=== PATIENT | male | born 1975 | race Hispanic/Latino ===

== ENCOUNTER 2018-07-30 07:49 | Emergency (ER) | payer OTHER ==
[2018-07-30 08:59] LABS: ALT/SGPT 55 U/L (12-78); AST/SGOT 18 U/L (15-37); Albumin 3.9 g/dL (3.4-5.0); Alkaline Phosphatase 77 U/L (45-117); BUN Blood Urea Nitrogen 18 mg/dL (7-18); Bicarbonate 27 mmol/L (21-32); Bilirubin Direct 0.2 mg/dL (0-0.2); Bilirubin Total 0.8 mg/dL (0.2-1.0); Glucose Level 87 mg/dL (74-106); NT PRO-BNP 22 pg/mL (<125); Potassium 4.1 mmol/L (3.5-5.1); Protein, Total 7.7 g/dL (6.4-8.2); Sodium Level 143 mmol/L (136-145); Troponin (Emerg Dept Use Only) < 0.02 ng/mL (0.0-0.045)
--- NOTE | 2018-07-30 09:00 | RAD REPORT ---
EXAM DESCRIPTION: RAD - Chest Single View - 07/30/2018 8:22 am CLINICAL HISTORY: CHEST PAIN Chest pain. COMPARISON: Chest Pa And Lat (2 Views) dated 12/17/2016 FINDINGS: Portable technique limits examination quality. The lungs are grossly clear. The heart is normal in size. No displaced fractures. IMPRESSION: No acute intrathoracic process suspected.
--- NOTE | 2018-07-30 09:25 | EDPHYS ---
Physician Documentation [facility] Name: Adriano Campbell Age: 42 yrs Sex: Male : 1975 Arrival Date: 07/30/2018 Time: 07:51 Bed 7 Private MD: ED Physician Jason Swift HPI: 07/30 08:23 This 42 yrs old Male presents to ER via Ambulatory with complaints of Chest rn Pain. 08:23 The patient or guardian reports chest pain that is located primarily in the left rn lateral anterior chest. Onset: 1 week(s) ago. The pain does not radiate. Associated signs and symptoms: Pertinent positives: None. Pertinent negatives: abdominal pain, cough, diaphoresis, dizziness, lightheadedness, nausea, near syncope, palpitations, shortness of breath, syncope, vomiting. The chest pain is described as aching, a pressure. Duration: The patient or guardian reports multiple episodes, that are intermittent, the episodes last approximately 1 minute(s). Modifying factors: The symptoms are alleviated by nothing. the symptoms are aggravated by nothing. Severity of pain: At its worst the pain was mild in the emergency department the pain has improved. The patient has not experienced similar symptoms in the past. REports left sided chest pain/pressure, non-radiating, not assoc with exertion, + mild cough, no fever, no trouble sleeping, had mild dyspnea when climbing stairs today so came in for eval, episodes only last about a minute each time. No famhx of early cardiac disease. . Historical: - Allergies: 08:02 No Known Allergies; iw - Home Meds: 08:02 None [Active]; iw - PMHx: 08:02 GERD; iw - PSHx: 08:02 rhinoplasty; iw - Immunization history:: Adult Immunizations not up to date. - Social history:: Smoking status: Patient/guardian denies using tobacco. - Ebola Screening: : Patient negative for fever greater than or equal to 101.5 degrees Fahrenheit, and additional compatible Ebola Virus Disease symptoms Patient denies exposure to infectious person Patient denies travel to an Ebola-affected area in the 21 days before illness onset No symptoms or risks identified at this time. - Family history:: not pertinent. - Hospitalizations: : No recent hospitalization is reported. ROS: 08:23 Constitutional: Negative for fever, chills, and weight loss, Eyes: Negative for injury, rn pain, redness, and discharge, Neck: Negative for injury, pain, and swelling, Cardiovascular: Negative for palpitations, and edema, Respiratory: Negative for shortness of breath, cough, wheezing, and pleuritic chest pain, Abdomen/GI: Negative for abdominal pain, nausea, vomiting, diarrhea, and constipation, MS/Extremity: Negative for injury and deformity, Skin: Negative for injury, rash, and discoloration, Neuro: Negative for headache, weakness, numbness, tingling, and seizure. Exam: 08:23 Constitutional: This is a well developed, well nourished patient who is awake, alert, rn and in no acute distress. Head/Face: Normocephalic, atraumatic. Eyes: Pupils equal round and reactive to light, extra-ocular motions intact. Lids and lashes normal. Conjunctiva and sclera are non-icteric and not injected. Cornea within normal limits. Periorbital areas with no swelling, redness, or edema. Neck: Trachea midline, no masses palpated, and no cervical lymphadenopathy. No Meningismus. Cardiovascular: Regular rate and rhythm with a normal S1 and S2. No gallops, murmurs, or rubs. No JVD. No pulse deficits. Respiratory: Lungs have equal breath sounds bilaterally, clear to auscultation. No increased work of breathing, no retractions or nasal flaring. Abdomen/GI: soft, non-tender MS/ Extremity: Pulses equal, no cyanosis. Neurovascular intact. Full, normal range of motion. Equal circumference. Neuro: Awake and alert, GCS 15, oriented to person, place, time, and situation. Cranial nerves II-XII grossly intact. Motor strength 5/5 in all extremities. Sensory grossly intact. Cerebellar exam normal. 09:24 ECG was reviewed by the Attending Physician. rn Vital Signs: 08:02 BP 137 / 84; Pulse 93; Resp 16; Pulse Ox 95% on R/A; Weight 113.4 kg; Height 6 ft. 1 iw in. (185.42 cm); 08:15 Temp 98.3(O); sv 08:45 BP 117 / 61; Pulse 77; Resp 16; Pulse Ox 95% on R/A; sv 09:47 BP 113 / 96; Pulse 80; Resp 19; Pulse Ox 95% ; sv 08:02 Body Mass Index 32.98 (113.40 kg, 185.42 cm) iw MDM: 07:58 Patient medically screened. rn 09:24 Differential diagnosis: acute myocardial infarction, acute pericarditis, anxiety, rn coronary artery disease chest wall pain, costochondritis, esophagitis, gastritis, gastroesophageal reflux disease (GERD), pericarditis, pleurisy, pneumonia, pneumothorax, pulmonary embolus. Data reviewed: vital signs, nurses notes, lab test result(s), EKG, radiologic studies, and as a result, I will discharge patient. Counseling: I had a detailed discussion with the patient and/or guardian regarding: the historical points, exam findings, and any diagnostic results supporting the discharge/admit diagnosis, lab results, radiology results, the need for outpatient follow up, to return to the emergency department if symptoms worsen or persist or if there are any questions or concerns that arise at home. Special discussion: Based on the patient's history, exam, and Dx evaluation, there is no indication for emergent intervention or inpatient Tx. It is understood by the patient/guardian that if the Sx's persist or worsen they need to return immediately for re-evaluation. I discussed with the patient/guardian in detail that at this point there is no indication for admission to the hospital. It is understood, however, that if the symptoms persist or worsen the patient needs to return immediately for re-evaluation. Based on the history and exam findings, there is no indication for further emergent testing or inpatient evaluation. I discussed with the patient/guardian the need to see the car greaser for further evaluation of the symptoms. I discussed with the patient/guardian the need to see the primary care provider for further evaluation of the symptoms. 07/30 08:05 Order name: LFT's; Complete Time: 09:07/30 08:05 Order name: Basic Metabolic Panel; Complete Time: :07/30 08:05 Order name: CBC with Diff rn 07/30 08:05 Order name: NT PRO-BNP; Complete Time: 09:07/30 08:05 Order name: Troponin (emerg Dept Use Only); Complete Time: 09:07/30 08:05 Order name: D-Dimer; Complete Time: 09:07/30 08:05 Order name: XRAY Chest (1 view); Complete Time: : rn 07/30 08:05 Order name: EKG; Complete Time: 08: rn 07/30 08:05 Order name: Cardiac monitoring; Complete Time: rn 07/30 08:05 Order name: EKG - Nurse/Tech; Complete Time: rn 07/30 08:05 Order name: IV Saline Lock; Complete Time: rn 07/30 08:05 Order name: Labs collected and sent; Complete Time: rn 07/30 08:05 Order name: O2 Per Protocol; Complete Time: rn 07/30 08:05 Order name: O2 Sat Monitoring; Complete Time: rn EC:24 Rate is 89 beats/min. Rhythm is regular. QRS [place] is Normal. [place] interval is normal. QRS rn interval is normal. QT interval is normal. No Q waves. T waves are Normal. No ST changes noted. Clinical impression: Normal ECG. Interpreted by me. Administered Medications: No medications were administered Disposition: 07/30/18 09:25 Discharged to Home. Impression: Chest pain, unspecified. - Condition is Stable. - Discharge Instructions: Nonspecific Chest Pain. - Medication Reconciliation Form, Thank You Letter, Antibiotic Education, Prescription Opioid Use form. - Follow up: Private Physician; When: As needed; Reason: Recheck today's complaints, Re-evaluation by your physician. - Problem is new. - Symptoms have improved. Signatures: Dispatcher [employer] EDLiz Moore RN RN sv Williams, Irene, RN RN Jason Swift MD MD internet and e business project manager: (The following items were deleted from the chart) 10:04 09:25 07/30/2018 09:25 Discharged to Home. Impression: Chest pain, unspecified. sv Condition is Stable. Forms are Medication Reconciliation Form, Thank You Letter, Antibiotic Education, Prescription Opioid Use. Follow up: Private Physician; When: As needed; Reason: Recheck today's complaints, Re-evaluation by your physician. Problem is new. Symptoms have improved. rn
--- NOTE | 2018-07-30 09:25 | ER ---
Nurse's Notes [facility] Name: Adriano Campbell Age: 42 yrs Sex: Male : 1975 Arrival Date: 07/30/2018 Time: 07:51 Bed 7 Private MD: Diagnosis: Chest pain, unspecified Presentation: 07/30 08:00 Presenting complaint: Patient states: intermittent chest pain X 2 weeks, described as iw pressure, lasts approx 30 secs, few times per day, pain radiates from left to midsternal chest. Transition of care: patient was not received from another setting of care. Onset of symptoms was July 16, 2018. Risk Assessment: Do you want to hurt yourself or someone else? Patient reports no desire to harm self or others. Initial Sepsis Screen: Does the patient meet any 2 criteria? No. Patient's initial sepsis screen is negative. Does the patient have a suspected source of infection? No. Patient's initial sepsis screen is negative. Care prior to arrival: None. 08:00 Method Of Arrival: Ambulatory iw 08:00 Acuity: VICKI 3 iw Triage Assessment: 08:05 General: Appears in no apparent distress. comfortable, well developed, Behavior is sv calm, cooperative, appropriate for age. Pain: Denies pain. Neuro: Level of Consciousness is awake, alert, obeys commands, Oriented to person, place, time, situation, Moves all extremities. Full function Gait is steady, Speech is normal. Cardiovascular: Reports chest pain, intermittently that lasts about 30 seconds and occurs throughout the day. Occurs at pinpoint areas of the midsternal and left side and under the left breast. Patient's skin is warm and dry. Rhythm is sinus rhythm. Respiratory: Airway is patent Respiratory effort is even, unlabored, Respiratory pattern is regular, symmetrical. Derm: Skin is pink, warm \T\ dry. Historical: - Allergies: 08:02 No Known Allergies; iw - Home Meds: 08:02 None [Active]; iw - PMHx: 08:02 GERD; iw - PSHx: 08:02 rhinoplasty; iw - Immunization history:: Adult Immunizations not up to date. - Social history:: Smoking status: Patient/guardian denies using tobacco. - Ebola Screening: : Patient negative for fever greater than or equal to 101.5 degrees Fahrenheit, and additional compatible Ebola Virus Disease symptoms Patient denies exposure to infectious person Patient denies travel to an Ebola-affected area in the 21 days before illness onset No symptoms or risks identified at this time. - Family history:: not pertinent. - Hospitalizations: : No recent hospitalization is reported. Screenin:05 Abuse screen: Denies threats or abuse. Denies injuries from another. Nutritional sv screening: No deficits noted. Tuberculosis screening: No symptoms or risk factors identified. Fall Risk None identified. Assessment: 09:00 Reassessment: Patient appears in no apparent distress at this time. No changes from sv previously documented assessment. Patient and/or family updated on plan of care and expected duration. Pain level reassessed. Patient is alert, oriented x 3, equal unlabored respirations, skin warm/dry/pink. 09:45 Reassessment: Patient appears in no apparent distress at this time. No changes from sv previously documented assessment. Patient and/or family updated on plan of care and expected duration. Pain level reassessed. Patient is alert, oriented x 3, equal unlabored respirations, skin warm/dry/pink. Vital Signs: 08:02 BP 137 / 84; Pulse 93; Resp 16; Pulse Ox 95% on R/A; Weight 113.4 kg; Height 6 ft. 1 iw in. (185.42 cm); 08:15 Temp 98.3(O); sv 08:45 BP 117 / 61; Pulse 77; Resp 16; Pulse Ox 95% on R/A; sv 09:47 BP 113 / 96; Pulse 80; Resp 19; Pulse Ox 95% ; sv 08:02 Body Mass Index 32.98 (113.40 kg, 185.42 cm) iw ED Course: 07:51 Patient arrived in ED. mr 07:53 Liz Hendrix, RN is Primary Nurse. sv 07:58 Jason Swift MD is Attending Physician. rn 08:02 Triage completed. iw 08:03 Arm band placed on. iw 08:05 Patient has correct armband on for positive identification. Placed in gown. Bed in low sv position. Call light in reach. telemetry monitor on. Pulse ox on. NIBP on. Door closed. Head of bed elevated. 08:05 Patient maintains SpO2 saturation greater than 95% on room air. sv 08:10 Initial lab(s) drawn, by me, sent to lab. Inserted saline lock: 20 gauge in right sv antecubital area, using aseptic technique. Blood collected. Flushed right antecubital with 5 ml normal saline. 08:15 X-ray(s) taken. sv 08:18 X-ray completed. Portable x-ray completed in exam room. Patient tolerated procedure jb2 well. 08:23 XRAY Chest (1 view) In Process Unspecified. EDMS 09:45 No provider procedures requiring assistance completed. IV discontinued, intact, sv bleeding controlled, No redness/swelling at site. Pressure dressing applied. Administered Medications: No medications were administered Outcome: 09:25 Discharge ordered by MD. rn 09:45 Discharged to home ambulatory. sv 09:45 Condition: stable 09:45 Discharge instructions given to patient, Instructed on discharge instructions, follow up and referral plans. Demonstrated understanding of instructions, follow-up care. 09:45 Patient left the ED. sv Signatures: Dispatcher [employer] EDOH Liz Hendrix RN RN Светлана Trejo Jesse jb2 Dennise Combs RN RN Jason Swift MD MD human resources intern: (The following items were deleted from the chart) 11:17 10:04 Patient left the ED. sv sv
--- NOTE | 2018-07-30 14:01 | EKG ---
Test Date: 2018-07-30 Test Time: 07:55:20 Scarf Gluer: HUMZA MEASUREMENT RESULTS: Intervals: Rate: 89 OH: 164 QRSD: 86 QT: 350 QTc: 425 Hay: P: 40 OH: 164 QRS: 30 T: -7 INTERPRETIVE STATEMENTS: Normal sinus rhythm Normal ECG Compared to ECG 12/17/2016 16:47:10 No significant changes Electronically Signed On 07-30-18 13:58:45 DEPORTATION OFFICER by Efra Cerna
== END 2018-07-30 10:04 | disposition home or self-care (01) ==
LOC: ER 07:49
DX: R07.9 Chest pain, unspecified (principal)
CPT/HCPCS: 36415; 71045; 80048; 80076; 83880; 84484; 85025; 85379; 93005

== ENCOUNTER 2022-09-17 08:47 | Emergency (ER) | payer OTHER ==
--- OUTSIDE RECORDS SUMMARY | 2022-09-17 08:51 | XMS REPORT | Continuity of Care Document ---
:1975 Author Organization [facility] t Address [address] [facility] [address] [place] [id number] Care Team Providers Name Role Phone Lab, Adc Fam Pob I Attending Clinician Unavailable Sharron Irving Attending Clinician SHARRON FARRAR Attending Clinician Unavailable Doctor Unassigned, [place] Attending Clinician Unavailable Payers Payer Name Policy Type Policy Number Effective Date Expiration Date S ource Problems This patient has no known problems. Allergies, Adverse Reactions, Alerts Allergy Allergy Status Severity Reaction(s) Onset Inactive Treating Comm ents Source Name Type Date Date Clinician NO KNOWN Drug Active Univers ALLERGIE Class ity of [facility] Social History Social Habit Start Date Stop Date Quantity Comments Source Exposure to Yes [facility] SARS-CoV-2 (event) Medica l Branch Sex Assigned At [birth year] [facility] 00:00:00 00:00:00 [facility] Smoking Status Start Date Stop Date Source Unknown if ever smoked [facility] Medications This patient has no known medications. Immunizations Ordered Filled Immunization Date Status Comments Sour e Immunization Name Name SARS-COV-2 COVID-19 2020-10-15 Completed Unive rsity of PFIZER VACCINE 00:00:00 [facility] Procedures This patient has no known procedures. Encounters Start End Encounter Admission Attending Care Care Encounter Source Date/Time Date/Time Type Type Clinicians Facility Department ID 2021-02-20 2021-02-20 Laboratory Lab, Adc Fam Pob I [facility] [id number] Univers 15:37:40 15:57:40 Only Charan, Sharron [employer] [id number] ity [facility] [id number] Jorge as Professio [id number] [address] Office [address] 2021-02-20 2021-02-20 Outpatient R CHARAN [facility] [id number] [facility] 15:40:00 15:40:00 SHARRON agustin [facility] 2021-02-20 2021-02-20 Letter Doctor INGRID [id number] Univers 00:00:00 00:00:00 (Out) Unassigned, MELIDA [id number] ity of [facility] [id number] Jorge as [phone] [address] 2021-02-20 2021-02-20 Letter Doctor INGRID [id number] Univers 00:00:00 00:00:00 (Out) Unassigned, MELIDA [id number] ity of [facility] [id number] Jorge as [phone] [address] Results This patient has no known results.
[2022-09-17] MEDS ORDERED: LIDOCAINE 1% MPF 5 ML VIAL ONE (09:29)
[2022-09-17] MEDS ORDERED: BUPIVACAINE 0.5% PF 10 ML VIAL ONE (09:30)
--- NOTE | 2022-09-17 09:54 | RAD REPORT ---
EXAM DESCRIPTION: RAD - Wrist Right 3 View - 09/17/2022 9:38 am CLINICAL HISTORY: laceration Pain COMPARISON: No comparisons FINDINGS: No fracture or dislocation seen. No foreign body or other soft tissue abnormality. IMPRESSION: Negative examination.
--- NOTE | 2022-09-17 09:54 | RAD REPORT ---
EXAM DESCRIPTION: RAD - Ankle Left 3 View - 09/17/2022 9:38 am CLINICAL HISTORY: Laceration Pain and swelling COMPARISON: No comparisons FINDINGS: No fracture or dislocation seen.
[2022-09-17 11:16] VITALS: BP 135/80; TEMP 98; O2SAT 100
--- NOTE | 2022-10-03 15:16 | ER ---
Nurse's Notes [facility] Name: Adriano Campbell Age: 46 yrs Sex: Male : 1975 Arrival Date: 09/17/2022 Time: 08:57 Bed 20 Private MD: Diagnosis: Laceration without foreign body of right wrist;Laceration without foreign body, left ankle;Abrasion of left hand;Abrasion, right ankle Presentation: 09/17 09:12 Chief complaint: Patient states: he was getting out of the shower when the glass door ap3 shattered and cut him on his right wrist and his left ankle. patient presents to the ED with wounds dressed and bleeding is controlled at this time. Coronavirus screen: At this time, the client does not indicate any symptoms associated with coronavirus-19. Ebola Screen: No symptoms or risks identified at this time. Complicating Factors: possible glass fragments left in wounds. Initial Sepsis Screen: Does the patient meet any 2 criteria? No. Patient's initial sepsis screen is negative. Does the patient have a suspected source of infection? No. Patient's initial sepsis screen is negative. Risk Assessment: Do you want to hurt yourself or someone else? Patient reports no desire to harm self or others. Onset of symptoms was September 17, 2022. 09:12 Method Of Arrival: Ambulatory ap3 09:12 Acuity: VICKI 3 ap3 Triage Assessment: 09:16 General: Appears in no apparent distress. Behavior is calm, cooperative. Pain: ap3 Complains of pain in right wrist, left ankle. Neuro: Level of Consciousness is awake, alert, obeys commands, Oriented to person, place, time, situation. Cardiovascular: Patient's skin is warm and dry. Respiratory: Airway is patent Respiratory effort is even, unlabored, Respiratory pattern is regular, symmetrical. Injury Description: Laceration sustained to right wrist, left ankle. Historical: - Allergies: 09:14 No Known Allergies; ap3 - PMHx: 09:14 GERD; ap3 - Immunization history:: Client reports receiving the 2nd dose of the Covid vaccine, Last tetanus immunization: up to date Last tetanus immunization: up to date. - Social history:: Smoking status: Patient denies any tobacco usage or history of. Screenin:17 [facility] ED Fall Risk Assessment (Adult) History of falling in the last 3 months, ap3 including since admission No falls in past 3 months (0 pts). Abuse screen: Denies threats or abuse. Nutritional screening: No deficits noted. Tuberculosis screening: No symptoms or risk factors identified. Assessment: 09:30 Reassessment: No changes from previously documented assessment. Patient and/or family ll1 updated on plan of care and expected duration. Pain level reassessed. Patient is alert, oriented x 3, equal unlabored respirations, skin warm/dry/pink. 10:08 Reassessment: No changes from previously documented assessment. Patient and/or family ll1 updated on plan of care and expected duration. Pain level reassessed. Patient is alert, oriented x 3, equal unlabored respirations, skin warm/dry/pink. Bulmaro Ford at . 11:00 Reassessment: No changes from previously documented assessment. Patient and/or family ll1 updated on plan of care and expected duration. Pain level reassessed. Patient is alert, oriented x 3, equal unlabored respirations, skin warm/dry/pink. 11:02 Injury Description: Laceration is clean, 0.5 to 2.5 cm long. ll1 11:02 Musculoskeletal: Circulation, motion, and sensation intact. Capillary refill < 3 ll1 seconds. Vital Signs: 09:12 BP 135 / 80; Pulse 83; Resp 17; Temp 98; Pulse Ox 100% ; Weight 118.84 kg; Height 6 ft. ap3 1 in. ; Pain 1/10; 09:12 Body Mass Index 34.57 (118.84 kg, 185.42 cm) ap3 09:12 Pain Scale: Adult ap3 ED Course: 08:57 Patient arrived in ED. am2 09:02 Yonny Ford NP is PHCP. pm1 09:02 Tad Jacinto DO is Attending Physician. pm1 09:14 Triage completed. ap3 09:17 Arm band placed on left wrist. ap3 09:26 Abdiel Segundo, RN is Primary Nurse. ll1 09:40 Ankle Left 3 View XRAY In Process Unspecified. EDMS 09:40 Wrist Right 3 View XRAY In Process Unspecified. EDMS 10:55 Wound care: to laceration located on left leg and right wrist was cleaned with dressed ll1 with 4X4s, Kerlix. 11:02 Patient has correct armband on for positive identification. Bed in low position. Call ll1 light in reach. Side rails up X2. Cardiac monitoring not applicable on this patient. 11:02 No provider procedures requiring assistance completed. IV discontinued, intact, ll1 bleeding controlled, No redness/swelling at site. Pressure dressing applied. Administered Medications: 10:00 Drug: Bupivacaine Infiltration (0.5 %) 10 ml {Note: administered by Bulmaro Ford NP.} ll1 Volume: 10 ml; Route: Infiltration; 11:04 Follow up: Response: No adverse reaction ll1 10:00 Drug: Lidocaine Infiltration (1 %) 5 ml {Note: administered by Bulmaro Ford NP.} Volume: ll1 5 ml; Route: Infiltration; 11:04 Follow up: Response: No adverse reaction ll1 Medication: 11:02 VIS not applicable for this client. ll1 Outcome: 10:45 Discharge ordered by . pm1 11:02 Discharged to home ambulatory. ll1 11:02 Condition: stable 11:02 Discharge instructions given to patient, Instructed on discharge instructions, follow up and referral plans. medication usage, Demonstrated understanding of instructions, follow-up care, medications, Prescriptions given X 1. 11:04 Patient left the ED. ll1 Signatures: Dispatcher [employer] EDMS Yonny Ford NP SHORT ORDER FRY COOK pm1 Kalie Espino am2 Kalie Kumar RN RN ap3 Abdiel Segundo RN RN ll1
--- NOTE | 2022-10-03 15:16 | EDPHYS ---
Physician Documentation [facility] Name: Adriano Campbell Age: 46 yrs Sex: Male : 1975 Arrival Date: 09/17/2022 Time: 08:57 Bed 20 Private MD: ED Physician Tad Jacinto HPI: 09/17 09:18 This 46 yrs old Male presents to ER via Ambulatory with complaints of pm1 Laceration - left ankle/right arm. 09:18 The patient or guardian complains of a laceration. The complaints affect the right pm1 wrist and left ankle. Context: The problem was sustained at home, resulted from opening the shower door. Glass shower door broke resulting in lacerations to right wrist, left ankle. and small abrasions to right ankle and left hand. Onset: The symptoms/episode began/occurred just prior to arrival. Treatment prior to arrival includes: bandaids and dressing. Modifying factors: The symptoms are alleviated by pressure to area. Severity of symptoms: in the emergency department the symptoms have improved. The patient has not experienced similar symptoms in the past. The patient has not recently seen a physician. Reports tetanus less than 5 years. Historical: - Allergies: 09:14 No Known Allergies; ap3 - PMHx: 09:14 GERD; ap3 - Immunization history:: Client reports receiving the 2nd dose of the Covid vaccine, Last tetanus immunization: up to date Last tetanus immunization: up to date. - Social history:: Smoking status: Patient denies any tobacco usage or history of. ROS: 09:34 Constitutional: Negative for fever, chills, and weight loss, Cardiovascular: Negative pm1 for chest pain, palpitations, and edema, Respiratory: Negative for shortness of breath, cough, wheezing, and pleuritic chest pain. 09:34 Neuro: Negative for headache, weakness, numbness, tingling, and seizure. 09:34 MS/extremity: Positive for laceration, of the right wrist, left medial ankle and anterior aspect of left ankle. 09:34 Skin: Positive for laceration(s), as noted on the ms/extremity exam. 09:34 All other systems are negative. Exam: 09:34 Constitutional: This is a well developed, well nourished patient who is awake, alert, pm1 and in no acute distress. Head/Face: Normocephalic, atraumatic. 09:34 Respiratory: Exam negative for acute changes, the patient does not display signs of respiratory distress. 09:34 Skin: injury, laceration(s), the wound is approximately 2 cm(s), of the right wrist, the second wound is approximately 2 cm(s), of the anterior aspect of left ankle, the third wound is approximately 2 cm(s), of the left medial ankle, that can be described as clean, no foreign body, irregular, with mild bleeding. 09:34 Neuro: Exam negative for acute changes, Orientation: is normal, Motor: is normal, moves all fours, Sensation: is normal, no obvious gross deficits, Gait: is steady, at a normal pace, without difficulty. Vital Signs: 09:12 BP 135 / 80; Pulse 83; Resp 17; Temp 98; Pulse Ox 100% ; Weight 118.84 kg; Height 6 ft. ap3 1 in. ; Pain 1/10; 09:12 Body Mass Index 34.57 (118.84 kg, 185.42 cm) ap3 09:12 Pain Scale: Adult ap3 Laceration: 09:34 Wound Repair of 2cm ( 0.8in ) subcutaneous laceration to right wrist. Irregularly pm1 shaped.. Distal neuro/vascular/tendon intact. Anesthesia: Local anesthetic administered with 3 mls of 1% lidocaine. Wound prep: Extensive cleansing with hibiclenz by me, Wound irrigation with saline by me, Wound explored extensively, Copious irrigation. Skin closed with 3 4-0 Prolene using simple sutures and sterile technique. Dressed with Neosporin, 4x4's. Patient tolerated well. 09:34 Wound Repair of 2cm ( 0.8in ) subcutaneous laceration to anterior aspect of left ankle. pm1 Irregularly shaped.. Distal neuro/vascular/tendon intact. Anesthesia: Local anesthetic administered with 3 mls of Lido/Marcaine. Wound prep: Extensive cleansing with hibiclenz by me, Wound irrigation with saline by me, Wound explored, Copious irrigation. Skin closed with 4 4-0 Prolene using simple sutures and sterile technique. Dressed with Neosporin, 4x4's. Patient tolerated well. 09:34 Wound Repair of 2cm ( 0.8in ) subcutaneous laceration to left medial ankle. Irregularly pm1 shaped.. Distal neuro/vascular/tendon intact. Anesthesia: Local anesthetic administered with 2 mls of Lido/Marcaine. Wound prep: Extensive cleansing with hibiclenz by me, Wound irrigation with saline, Wound explored extensively, Copious irrigation. Skin closed with 3 4-0 Prolene using simple sutures and sterile technique. Dressed with Neosporin, 4x4's. Patient tolerated well. MDM: 09:04 Patient medically screened. pm1 09:18 Data reviewed: vital signs. pm1 10:43 Counseling: I had a detailed discussion with the patient and/or guardian regarding: the pm1 historical points, exam findings, and any diagnostic results supporting the discharge/admit diagnosis, radiology results, the need for outpatient follow up, suture removal in 10-14 days with clinic or in the ER, to return to the emergency department if symptoms worsen or persist or if there are any questions or concerns that arise at home. 09/17 09:17 Order name: Ankle Left 3 View XRAY; Complete Time: 10:43 pm1 09/17 09:17 Order name: Wrist Right 3 View XRAY; Complete Time: 10:43 pm1 09/17 09:17 Order name: Dressing - Wound; Complete Time: 10:55 pm1 09/17 09:17 Order name: Gloves, Sterile; Complete Time: 10:55 pm1 09/17 09:17 Order name: Prolene, Sutures; Complete Time: 10:55 pm1 09/17 09:17 Order name: Setup Suture Tray; Complete Time: 10:55 pm1 Administered Medications: 10:00 Drug: Bupivacaine Infiltration (0.5 %) 10 ml {Note: administered by Bulmaro Ford HOLE DIGGER OPERATOR.} ll1 Volume: 10 ml; Route: Infiltration; 11:04 Follow up: Response: No adverse reaction ll1 10:00 Drug: Lidocaine Infiltration (1 %) 5 ml {Note: administered by P. Liliana, HOLE DIGGER OPERATOR.} Volume: ll1 5 ml; Route: Infiltration; 11:04 Follow up: Response: No adverse reaction ll1 Disposition: 13:39 Co-signature as Attending Physician, Tad MONTES DE OCA was immediately available on-site ms3 in the Emergency Department for consultation in the care of the patient. Disposition Summary: 09/17/22 10:45 Discharge Ordered Location: Home pm1 Problem: new pm1 Symptoms: have improved pm1 Condition: Stable pm1 Diagnosis - Laceration without foreign body of right wrist pm1 - Laceration without foreign body, left ankle pm1 - Abrasion of left hand pm1 - Abrasion, right ankle pm1 Followup: pm1 - With: Emergency Department - When: As needed - Reason: Worsening of condition Followup: pm1 - With: Private Physician - When: 10 - 14 days - Reason: Recheck today's complaints, Continuance of care, Staple/Suture removal, Re-evaluation by your physician Discharge Instructions: - Discharge Summary Sheet pm1 - Abrasion pm1 - Laceration Care, Adult pm1 Forms: - Work release form ss - Medication Reconciliation Form pm1 - Thank You Letter pm1 - Antibiotic Education pm1 - Prescription Opioid Use pm1 Prescriptions: - Cephalexin 500 mg Oral Capsule - take 1 capsule by ORAL route every 8 hours for 10 days; 30 capsule; Refills: 0, pm1 Product Selection Permitted Signatures: Dispatcher [employer] EDMS Yonny Ford, MARIO ALBERTO HOLE DIGGER OPERATOR pm1 Kalie Kumar RN RN ap3 Abdiel Segundo RN RN ll1 Tad Jacinto DO DO ms3 Corrections: (The following items were deleted from the chart) 11:21 10:39 Wound Repair of 2cm ( 0.8in ) subcutaneous laceration to right wrist. Irregularly pm1 shaped.. Distal neuro/vascular/tendon intact. Anesthesia: Local anesthetic administered with 3 mls of 1% lidocaine. Wound prep: Extensive cleansing with hibiclenz by me, Wound irrigation with saline by me, Wound explored extensively, Copious irrigation. Skin closed with 3 4-0 Prolene using simple sutures and sterile technique. Dressed with Neosporin, 4x4's. Patient tolerated well. pm1
== END 2022-09-17 11:04 | disposition home or self-care (01) ==
LOC: ER 08:47
PROC: 0HQNXZZ Repair Left Foot Skin, External Approach (ICD-10-PCS; principal; 2022-09-17)
PROC: 0HQNXZZ Repair Left Foot Skin, External Approach (ICD-10-PCS; 2022-09-17)
PROC: 0HQFXZZ Repair Right Hand Skin, External Approach (ICD-10-PCS; 2022-09-17)
DX: S61.511A Laceration without foreign body of right wrist, initial encounter (principal); S91.012A Laceration without foreign body, left ankle, initial encounter; S91.011A Laceration without foreign body, right ankle, initial encounter; S61.412A Laceration without foreign body of left hand, initial encounter
CPT/HCPCS: 73110; 73610; 99284; 12002; J2001

== ENCOUNTER 2022-12-25 23:31 | Emergency (ER) | payer OTHER ==
--- OUTSIDE RECORDS SUMMARY | 2022-12-25 23:33 | XMS REPORT | Continuity of Care Document ---
:1975 Author Organization [facility] t Address [address] [facility] [address] [place] [id number] Care Team Providers Name Role Phone Lab, [facility] Fam Pob I Attending Clinician Unavailable Sharron Irving Attending Clinician SHARRON FARRAR Attending Clinician Unavailable Doctor Unassigned, [place] Attending Clinician Unavailable Payers Payer Name Policy Type Policy Number Effective Date Expiration Date S ource Problems This patient has no known problems. Allergies, Adverse Reactions, Alerts Allergy Allergy Status Severity Reaction(s) Onset Inactive Treating Comm ents Source Name Type Date Date Clinician NO KNOWN Drug Active [facility] ALLERGIE Class ity of [facility] Social History Social Habit Start Date Stop Date Quantity Comments Source Exposure to Yes [facility] SARS-CoV-2 (event) [facility] Sex Assigned At [birth year] [facility] 00:00:00 00:00:00 [facility] Smoking Status Start Date Stop Date Source Unknown if ever smoked [facility] Medications This patient has no known medications. Immunizations Ordered Filled Immunization Date Status Comments Sour e Immunization Name Name SARS-COV-2 COVID-19 2020-10-15 Completed Unive rsity of PFIZER VACCINE 00:00:00 [facility] Procedures This patient has no known procedures. Encounters Start End Encounter Admission Attending Care Care Encounter Source Date/Time Date/Time Type Type Clinicians Facility Department ID 2021-02-20 2021-02-20 Laboratory Lab, Adc Fam Pob I [facility] [id number] Univers 15:37:40 15:57:40 Only Char[facility]arron [employer] [id number] [id number] Jorge as Professio [phone] [address] 2021-02-20 2021-02-20 Outpatient R CHARAN, [facility] [id number] [facility] 15:40:00 15:40:00 SHARRON agustin [facility] 2021-02-20 2021-02-20 Letter Doctor INGRID [id number] Univers 00:00:00 00:00:00 (Out) Unassigned, MELIDA [id number] ity of [place] [facility] [id number] Jorge as [phone] [address] 2021-02-20 2021-02-20 Letter Doctor INGRID [id number] Univers 00:00:00 00:00:00 (Out) Unassigned, MELIDA [id number] ity of [place] [facility] [id number] Jorge as [phone] [address] Results This patient has no known results.
[2022-12-26] MEDS ORDERED: methocarbamoL 750 MG TAB ONE (00:09)
[2022-12-26] MEDS ORDERED: KETOROLAC 30 MG/ML INJ ONE (00:10)
[2022-12-26] MEDS ORDERED: ONDANSETRON 4 MG (ODT) TAB ONE (00:10)
[2022-12-26] MEDS ORDERED: MORPHINE 4 MG/ML SYR ONE (00:52)
--- NOTE | 2022-12-26 03:15 | ER ---
Nurse's Notes [facility] Name: Adriano Campbell Age: 47 yrs Sex: Male : 1975 Arrival Date: 12/25/2022 Time: 23:31 Bed 4 Private MD: Diagnosis: Low back pain;Left lower back pain with sciatica, musculoskeletal back pain Presentation: 12/25 23:37 Chief complaint: Patient states: "I have a pinched nerve in the lower left side of my vc1 back. I have had it before.". Coronavirus screen: Vaccine status: Patient reports receiving the 2nd dose of the covid vaccine. plus booster; doesn't remember automation qa tester Client denies travel out of the [place] in the last 14 days. At this time, the client does not indicate any symptoms associated with coronavirus-19. Ebola Screen: Patient negative for fever greater than or equal to 101.5 degrees Fahrenheit, and additional compatible Ebola Virus Disease symptoms Patient denies exposure to infectious person. Patient denies travel to an Ebola-affected area in the 21 days before illness onset. No symptoms or risks identified at this time. Initial Sepsis Screen: Does the patient meet any 2 criteria? No. Patient's initial sepsis screen is negative. Does the patient have a suspected source of infection? No. Patient's initial sepsis screen is negative. Risk Assessment: Do you want to hurt yourself or someone else? Patient reports no desire to harm self or others. Onset of symptoms was December 25, 2022 at 21:00. 23:37 Method Of Arrival: Ambulatory vc1 23:37 Acuity: VICKI 3 vc1 Triage Assessment: 23:40 General: Appears in no apparent distress. uncomfortable, Behavior is calm, cooperative, vc1 appropriate for age. Pain: Complains of pain in lumbar area and left low back Pain radiates to left leg Quality of pain is described as sharp, "Paralyzing". Pain: Noted to be grimacing, resistant to movement. EENT: No deficits noted. No signs and/or symptoms were reported regarding the EENT system. Neuro: Level of Consciousness is awake, alert, obeys commands, Oriented to person, place, time, situation, Appropriate for age. Cardiovascular: No deficits noted. Respiratory: Airway is patent Respiratory effort is even, unlabored, Respiratory pattern is regular, symmetrical. GI: No deficits noted. No signs and/or symptoms were reported involving the gastrointestinal system. : No deficits noted. No signs and/or symptoms were reported regarding the genitourinary system. Derm: No deficits noted. No signs and/or symptoms reported regarding the dermatologic system. Musculoskeletal: Reports pain in left low back. Historical: - Allergies: 23:39 No Known Allergies; vc1 - Home Meds: 23:39 lisinopril 10 mg Oral tablet daily [Active]; vc1 - PMHx: 23:39 GERD; Hypertensive disorder; vc1 - PSHx: 23:39 None; vc1 - Immunization history:: Client reports receiving the 2nd dose of the Covid vaccine. - Social history:: Smoking status: Patient denies any tobacco usage or history of. - Family history:: not pertinent. Screenin:58 Abuse screen: Denies threats or abuse. Nutritional screening: No deficits noted. vc1 Tuberculosis screening: No symptoms or risk factors identified. 12/26 03:17 [facility] ED Fall Risk Assessment (Adult) Score/Fall Risk Level 0 - 2 = Low Risk. as6 Vital Signs: 12/25 23:37 BP 166 / 80; Pulse 83; Resp 18; Temp 97.7; Pulse Ox 99% ; Weight 117.93 kg; Height 6 vc1 ft. 1 in. ; Pain 9/10; 12/26 03:00 BP 144 / 76; Pulse 80; Resp 18; Temp 98; Pulse Ox 99% on R/A; rv 12/25 23:37 Body Mass Index 34.30 (117.93 kg, 185.42 cm) vc1 12/25 23:37 Pain Scale: Adult vc1 Becka Coma Score: 03:00 Eye Response: spontaneous(4). Motor Response: obeys commands(6). Verbal Response: rv oriented(5). Total: 15. ED Course: 12/25 23:34 Patient arrived in ED. es 23:39 Triage completed. vc1 23:40 Arm band placed on right wrist. vc1 23:48 Ever Mcghee MD is Attending Physician. sp4 23:53 Sushil Hua RN is Primary Nurse. rv 12/26 01:46 CT Lumbar Spine Wo Con In Process Unspecified. EDMS 03:17 Bed in low position. Call light in reach. as6 03:17 No provider procedures requiring assistance completed. Patient did not have IV access rv during this emergency room visit. Administered Medications: 00:10 Drug: Ketorolac IM 60 mg Route: IM; Site: right gluteus; rv 02:11 Follow up: Response: No adverse reaction; Pain is decreased rv 00:10 Drug: Ondansetron PO 4 mg Route: PO; rv 02:11 Follow up: Response: No adverse reaction rv 00:10 Drug: Methocarbamol PO 1500 mg Route: PO; rv 02:11 Follow up: Response: No adverse reaction rv 01:33 Drug: morphine IM 8 mg Route: IM; Site: left gluteus; rv 02:11 Follow up: Response: No adverse reaction; Pain is decreased rv Medication: 03:17 VIS not applicable for this client. as6 Outcome: 03:14 Discharge ordered by . sp4 03:17 Discharged to home ambulatory, with family. rv 03:17 Condition: improved 03:17 Discharge instructions given to patient, Instructed on discharge instructions, follow up and referral plans. medication usage, Demonstrated understanding of instructions, follow-up care, medications, Prescriptions given X 3. 03:18 Patient left the ED. rv Signatures: Dispatcher [employer] Diana Talley Ronaldo RN RN Samir Purvis RN RN as6 Muna Alvarez RN RN vc1 Ever Mcghee MD MD sp4
--- NOTE | 2022-12-26 03:15 | EDPHYS ---
Physician Documentation [facility] Name: Adriano Campbell Age: 47 yrs Sex: Male : 1975 Arrival Date: 12/25/2022 Time: 23:31 Bed 4 Private MD: ED Physician Ever Mcghee HPI: 12/25 23:49 This 47 yrs old Male presents to ER via Ambulatory with complaints of MUSCLE sp4 CRAMPS. 12/26 03:17 This 47 yrs old Male presents to ER via Ambulatory with complaints of MUSCLE sp4 CRAMPS. 03:17 Patient is a 47-year-old male with prior history of sciatica presents with acute onset sp4 of lower back pain worsening in the past 1 week associated with pain radiation towards the left buttock. Patient states there is no weakness in the leg however he has moderate to severe pain with ambulation.. 03:17 Patient reported some muscular cramps associated with lower back pain, denied sp4 incontinence of urine, denied constipation, denied perianal numbness, denied lifting weakness, denies numbness or tingling. Historical: - Allergies: 12/25 23:39 No Known Allergies; vc1 - Home Meds: 23:39 lisinopril 10 mg Oral tablet daily [Active]; vc1 - PMHx: 23:39 GERD; Hypertensive disorder; vc1 - PSHx: 23:39 None; vc1 - Immunization history:: Client reports receiving the 2nd dose of the Covid vaccine. - Social history:: Smoking status: Patient denies any tobacco usage or history of. - Family history:: not pertinent. ROS: 12/26 03:17 Constitutional: Negative for fever, chills, and weight loss, Eyes: Negative for injury, sp4 pain, redness, and discharge, ENT: Negative for injury, pain, and discharge, Neck: Negative for injury, pain, and swelling, Cardiovascular: Negative for chest pain, palpitations, and edema, Respiratory: Negative for shortness of breath, cough, wheezing, and pleuritic chest pain, Abdomen/GI: Negative for abdominal pain, nausea, vomiting, diarrhea, and constipation, Back: Negative for injury , positive lower back pain positive pain with ambulation : Negative for injury, bleeding, discharge, and swelling, MS/Extremity: Negative for injury and deformity, Skin: Negative for injury, rash, and discoloration, Neuro: Negative for headache, weakness, numbness, tingling, and seizure, Psych: Negative for depression, anxiety, Allergy/Immunology: Negative for hives, rash, and allergies Endocrine: Negative for neck swelling, polydipsia, polyuria, polyphagia, and weight changes Hematologic/Lymphatic: Negative for swollen nodes, abnormal bleeding, and unusual bruising Exam: 03:17 Constitutional: This is a well developed, well nourished patient who is awake, alert, sp4 and in no acute distress. Head/Face: Normocephalic, atraumatic. Eyes: Pupils equal round and reactive to light, extra-ocular motions intact. Lids and lashes normal. Conjunctiva and sclera are not injected. Cornea within normal limits. Periorbital areas with no swelling, redness, or edema. ENT: Nares patent. No nasal discharge, no septal abnormalities noted. Tympanic membranes are normal and external auditory canals are clear. Oropharynx with no redness, swelling, or masses, exudates, or evidence of obstruction, uvula midline. Mucous membranes moist. Neck: Trachea midline, no thyromegaly or masses palpated, and no cervical lymphadenopathy. Supple, full range of motion without nuchal rigidity, or vertebral point tenderness. Chest/axilla: Normal chest wall appearance and motion. Nontender with no deformity. No lesions are appreciated. Cardiovascular: Regular rate and rhythm with a normal S1 and S2. No gallops, murmurs, or rubs. Normal PMI, no JVD. No pulse deficits. Respiratory: Lungs have equal breath sounds bilaterally, clear to auscultation and percussion. No rales, rhonchi or wheezes noted. No increased work of breathing, no retractions or nasal flaring. Abdomen/GI: Soft, non-tender, with normal bowel sounds. No distension or tympany. No guarding or rebound. No evidence of tenderness throughout. Back: No spinal tenderness. No costovertebral tenderness. Left lower spine muscular tenderness, decreased range of motion secondary to pain Male : Normal genitalia with no discharge or lesions. Skin: Warm, dry with normal turgor. Normal color with no rashes, no lesions, and no evidence of cellulitis. MS/ Extremity: Pulses equal, no cyanosis. Neurovascular intact. Full, normal range of motion. Neuro: Awake and alert, GCS 15, oriented to person, place, time, and situation. Cranial nerves II-XII grossly intact. Motor strength 5/5 in all extremities. Sensory grossly intact. Psych: Awake, alert, with orientation to person, place and time. Behavior, mood, and affect are within normal limits Vital Signs: 12/25 23:37 BP 166 / 80; Pulse 83; Resp 18; Temp 97.7; Pulse Ox 99% ; Weight 117.93 kg; Height 6 vc1 ft. 1 in. ; Pain 9/; 12/26 03:00 BP 144 / 76; Pulse 80; Resp 18; Temp 98; Pulse Ox 99% on R/A; rv 12/25 23:37 Body Mass Index 34.30 (117.93 kg, 185.42 cm) vc1 12/25 23:37 Pain Scale: Adult vc1 Becka Coma Score: 03:00 Eye Response: spontaneous(4). Motor Response: obeys commands(6). Verbal Response: rv oriented(5). Total: 15. MDM: 12/25 23:55 Patient medically screened. sp4 12/26 03:17 Differential Diagnosis Spinal cord compression, radiculopathy, musculoskeletal pain. sp4 Data reviewed: vital signs, nurses notes, radiologic studies, CT scan. ED course: Patient's pain has markedly improved after medications given today, patient able to ambulate without problems, neurologic exam is normal, normal lower extremity strength bilaterally. Patient stable for discharge home, CT revealed no misalignment or spinal cord compression. 12/26 01:17 Order name: CT Lumbar Spine Wo Con sp4 Administered Medications: 00:10 Drug: Ketorolac IM 60 mg Route: IM; Site: right gluteus; rv 02:11 Follow up: Response: No adverse reaction; Pain is decreased rv 00:10 Drug: Ondansetron PO 4 mg Route: PO; rv 02:11 Follow up: Response: No adverse reaction rv 00:10 Drug: Methocarbamol PO 1500 mg Route: PO; rv 02:11 Follow up: Response: No adverse reaction rv 01:33 Drug: morphine IM 8 mg Route: IM; Site: left gluteus; rv 02:11 Follow up: Response: No adverse reaction; Pain is decreased rv Disposition Summary: 12/26/22 03:14 Discharge Ordered Location: Home sp4 Problem: new sp4 Symptoms: have improved sp4 Condition: Stable sp4 Diagnosis - Low back pain sp4 - Left lower back pain with sciatica, musculoskeletal back pain sp4 Followup: sp4 - With: Private Physician - When: 7 - 10 days - Reason: Recheck today's complaints Discharge Instructions: - Discharge Summary Sheet sp4 - Acute Back Pain, Adult sp4 Prescriptions: - Ibuprofen 800 mg Oral Tablet - take 1 tablet by ORAL route every 8 hours As needed take with food; 30 tablet; sp4 Refills: 0, Product Selection Permitted - Tramadol 50 mg Oral Tablet - take 1 tablet by ORAL route every 8 hours as needed; 12 tablet; Refills: 0, sp4 Product Selection Permitted - methocarbamol 750 mg Oral Tablet - take 2 tablets by ORAL route 4 times per day for 3 days PRN back pain / muscle sp4 soreness; 60 tablet; Refills: 0, Product Selection Permitted Signatures: Dispatcher [employer] Sushil Zhu RN RN rv Calcote, Vanessa, RN RN vc1 Ever Mcghee MD MD sp4
[2022-12-26 03:47] VITALS: BP 166/80; TEMP 97.7; O2SAT 99
--- NOTE | 2022-12-26 13:13 | RAD REPORT ---
EXAM DESCRIPTION: CT - Spine Lumbar Wo Con - 12/26/2022 6:14 am CLINICAL HISTORY: The patient is 47 years old and is Male; pain acute TECHNIQUE: Axial computed tomography images of the lumbar spine without intravenous contrast. Sagi ttal and coronal reformatted images were created and reviewed. This CT exam was performed using one or more of the following dose reduction techniques: automated exposure control, adjustment of the mA and/or kV according to patient size, and/or use of iterative reconstruction technique. COMPARISON: No relevant prior studies available. FINDINGS: Vertebrae: Lateral alignment is maintained. No acute fracture. Discs/spinal canal/neural foramina: No central canal stenosis. Soft tissues: Unremarkable. Kidneys and ureters: Kidneys are unremarkable. Appendix: The visualized appendix is normal. No pericecal inflammation to suggest acute appendici tis. IMPRESSION: No acute findings in the lumbar spine. Electronically signed by: Liz Baker MD 12/26/2022 4:06 AM CDT Due to temporary technical issues with the PACS/Fluency reporting system, reports are being signed by the in house radiologists without review as a courtesy to insure prompt reporting. The interpreting radiologist is fully responsible for the content of the report.
== END 2022-12-26 03:18 | disposition home or self-care (01) ==
LOC: ER 23:31
DX: M54.42 Lumbago with sciatica, left side (principal); M79.18 Myalgia, other site; I10 Essential (primary) hypertension
CPT/HCPCS: 72131; 96372; 99284; Q0162